=== PATIENT | male | born 1955 | race Native Hawaiian/Other Pacific Islander ===

== ENCOUNTER 2016-12-15 17:01 | Outpatient (CLI) | payer OTHER ==
[2016-12-15 17:25] LABS: PLATELET COUNT 154 K/uL (142-355)
[2016-12-15 17:54] LABS: POTASSIUM 4.2 mmol/L (3.6-5.2); SODIUM 138 mmol/L (136-145)
== END 2016-12-15 18:01 | disposition home or self-care (01) ==
LOC: LABW 17:01
PROVIDERS: Family Medicine
DX: R05 Cough (principal); R11.10 Vomiting, unspecified; E11.9 Type 2 diabetes mellitus without complications; R10.819 Abdominal tenderness, unspecified site
CPT/HCPCS: 36415; 80053; 81000; 82150; 83690; 84484; 85027; 93005

== ENCOUNTER 2016-12-22 08:17 | Outpatient (CLI) | payer OTHER | END 2016-12-22 19:09 | disposition home or self-care (01) | LOC: US 08:17 | DX: R10.11 Right upper quadrant pain (principal); R05 Cough ==